=== PATIENT | male | born 2000 | race Caucasian/White ===

== ENCOUNTER 2022-10-24 07:16 | Day surgery (SDC) | payer BC, SELFPAY ==
[2022-10-24] VITALS (10 sets, daily range): BP systolic 90–131; BP diastolic 45–86; PULSE 55–84; RESP 14–16; TEMP 36.6–36.7; O2SAT 96–100; BMI 28.8
[2022-10-24] MEDS: SODIUM CHLORIDE 0.9 % (FLUSH) 10 ML SYRINGE IVF (07:37)
[2022-10-24] MEDS: LACTATED RINGERS 1000 ML 1,000 ML 100 ML IV (07:38)
--- NOTE | 2022-10-24 07:54 | SUR.PREOP ---
TIME?OUT:?7:56 PT/RN/MDA?VERIFICATION?OF?SURGICAL?SITE Right Thumb Ulna ,?PROCEDURE Nerve block,?AND?CONSENT OBTAINED?PRIOR?TO?INVASIVE?PROCEDURE yes.
[2022-10-24] MEDS: fentaNYL 100 MCG/2 ML inj IVP (07:56)
[2022-10-24] MEDS: MIDAZOLAM HCL 1 MG/ML inj IVP (07:57)
--- NOTE | 2022-10-24 08:09 | P.NB_ITS ---
Nerve Block Nerve Block Time Seen by Provider: 08:09 Date Seen: 10/24/22 Type of block requested by surgeon for post-operative analgesia: axillary Side: right Time out performed: Yes Verification of patient name: Yes Verification of date of : Yes Site marking: site marked Name of person performing procedure: Jude Naren Continuous monitoring Was continuous monitoring of O2 sat, B/P, equipment monitor phototypesetting, recorded every 15 minutes?: Yes Procedure Checklist: sterile prep, needles and gloves Ultrasound guided. Images saved: Yes Medications given in 5ml increments after negative aspiration: Ropivicaine %: 0.5 mL: 20 Needle gauge: 22 Decadron (mg): 10 Precedex (mcg): 20 Patient tolerated procedure well: Yes Block Charges Block Charge (with Pro Fee): Axillary Nerve Use of Ultrasound Machine for Block: Yes- US Guidance/pain block
--- NOTE | 2022-10-24 08:13 | SUR.PREOP ---
I have reviewed and concur with all assessments, medication administration, and documentation completed by Yokasta Betancourt, student nurse.?
[2022-10-24] MEDS: CEFAZOLIN 2 GM INJ IVP (08:42)
--- NOTE | 2022-10-24 09:59 | PM.ORPRC ---
Procedure Note Date of procedure: 10/24/22 Procedure: PREOPERATIVE DIAGNOSIS: Right thumb ulnar collateral ligament avulsion fracture POSTOPERATIVE DIAGNOSIS: Right thumb ulnar collateral ligament avulsion fracture NAME OF OPERATION: Right thumb ulnar collateral ligament repair, with internal brace SURGEON: James Shannon MD BEATER WORKER HELPER: Vilma Rodriguez PA-C ANESTHESIA: Axillary block plus monitored anesthesia care ESTIMATED BLOOD LOSS: 0 mL COMPLICATIONS: None SPECIMENS: None DRAINS: None PREOPERATIVE ANTIBIOTICS: Ancef 2 grams INDICATIONS: The patient is a 22-year-old male with a history of right thumb ulnar collateral ligament injury. Given the severity of the injury and the amount of instability, operative intervention was recommended. The risks, benefits and expected outcomes were discussed in detail. These included but were not limited to: Infection, bleeding, injury to blood vessel or nerve, venous thromboembolism. All questions were answered to their satisfaction. Use of an marketing assistant retail division was necessary for patient positioning, soft tissue retraction, wound closure and dressing and splint application. PROCEDURE: An axillary block was placed by anesthesia. The patient was placed supine on the operating room table. IV sedation was administered. The right upper extremity was prepped and draped in the usual sterile fashion. The limb was exsanguinated with the Tai bandage. The pneumatic tourniquet was inflated to 250 mmHg. A longitudinal incision was made over ulnar side of the thumb MP joint. Subcutaneous dissection was taken with tenotomy scissors. Branches of the radial sensory nerve were encountered and were retracted out of the way, protected throughout the case. The extensor aponeurosis was divided longitudinally, exposing the ulnar collateral ligament. It was torn off of the base of the proximal phalanx with a piece of bone. The bed of the fracture was debrided with the Lempert rongeur and curette. A guide pin was placed in the base of the proximal phalanx, just volar to midline, and the 3.0 mm cannulated drill was used. The Arthrex forked SwiveLock anchor was placed in the base of the proximal phalanx with a 2-0 FiberWire and a labral tape x1. Both limbs of the FiberWire were passed through the distal edge of the ulnar collateral ligament. The MP joint was held reduced and these sutures were tied over the top of the ligament resulting in a horizontal mattress suture. This appeared to anatomically reduce bony fragment. A 2nd guide pin was drilled in the metacarpal head, just proximal to the origin of the ulnar collateral ligament. There was over drilled with a 3.0 mm drill. The Arthrex forked SwiveLock anchor was placed with both limbs of the FiberTape, with the thumb MP joint in 30? of flexion. This completes the internal brace. The MP joint is stable to stress at 0 and 30?. The extensor aponeurosis was repaired with interrupted [id number] 4-0 Vicryl sutures. The wound was irrigated with normal saline. It was closed with the 3-0 Vicryl and a 4-0 Monocryl. Glue was used to seal the skin. A dry dressing and short-arm thumb spica splint were applied, the tourniquet was released. Sponge and needle counts were correct x 2. The patient tolerated the procedure well. There were no apparent complications. They were carefully transferred to the hospital bed and taken to the postanesthesia care unit in satisfactory condition. PLAN: The patient will be discharged to home. They will work on ice and elevation of the hand. They will follow up in the office next week for wound check. We will send them to occupational therapy for a hand based thumb spica Orthoplast splint and early active range of motion.
--- NOTE | 2022-10-24 10:01 | CRLHL7_ITS ---
For Patients: As a result of the Cures Act, medical imaging exams and procedure reports are released immediately into your electronic medical record. You may view this report before your referring provider. If you have questions, please contact your health care provider. Indication: POST OP Technique: Three views right thumb IMPRESSION: Cast is present about the right thumb. There is a fracture deformity at the ulnar base of the thumb proximal phalanx with extension to the 1st MCP joint. Dictated by Sher Solano MD @ 10/24/2022 12:51:32 PM (Electronically Signed)
--- NOTE | 2022-10-24 10:29 | W.ANESCHARGE ---
Anesthesia Charges Start Date/Time Anesthesia Start Date: 10/24/22 Anesthesia Start Time: 08:33 Stop Date/Time Anesthesia Stop Date: 10/24/22 Anesthesia Stop Time: 10:18
[2022-10-24] MEDS: OxyCODONE/APAP 5-325 TABLET 1 TAB PO (11:30)
== END 2022-10-24 11:52 | disposition home or self-care (01) ==
PROVIDERS: PCP Family Medicine; Visit Provider Orthopaedic Surgery
PROC: (CPT 26540; principal; 2022-10-24 08:15)
DX: S63.418A Traumatic rupture of collateral ligament of other finger at metacarpophalangeal and interphalangeal joint, initial encounter (principal); S62.511A Displaced fracture of proximal phalanx of right thumb, initial encounter for closed fracture
CPT/HCPCS: 26540; 26735; 01830; 73140; 76942; A4580; A9270; C1713; J0690; J1100; J2250; J2405; J2704; J2795; J3010; J3490; J7120

== ENCOUNTER 2023-02-12 16:30 | Outpatient (RCR) | payer BC, SELFPAY | END 2023-02-13 08:05 | disposition home or self-care (01) | PROVIDERS: PCP Family Medicine; Visit Provider Orthopaedic Surgery | DX: S63.641A Sprain of metacarpophalangeal joint of right thumb, initial encounter (principal); Z98.890 Other specified postprocedural states; Z51.89 Encounter for other specified aftercare | CPT/HCPCS: 97110; 97140; 97165; L3913; X5282 ==

== ENCOUNTER 2023-05-11 20:17 | Outpatient (CLI) | payer BC, SELFPAY ==
--- NOTE | 2023-05-20 08:42 | W.PM.SLEEP ---
Sleep Study Details Details Interpreting Provider: Javon Date of Sleep Study: 05/11/23 Sleep Study Details: STUDY TYPE:? Home unattended ? BMI:? 31.2 ORDERING PROVIDER:? Champ INDICATION:? Daytime hypersomnolence ? SLEEP SUMMARY:? 520.3 minutes monitored RESPIRATORY SUMMARY:? AHI 8.4, supine 12.7, left lateral 4.2, right lateral 6.9 Low oxygen 89 Snoring 1.4% PERIODIC LIMB MOVEMENTS OF SLEEP:? Not recorded during home study CARDIAC:? Range 42-96, mean 55.1 beats per minute IMPRESSION:? This study demonstrates mild obstructive sleep apnea worse in the supine position RECOMMENDATION: Treatment options would include CPAP AutoSet 4-17, dental appliance and/or airway expansion surgery.
== END 2023-05-11 20:18 | disposition home or self-care (01) ==
LOC: SLEEP 20:17
PROVIDERS: PCP Family Medicine; Visit Provider Family Medicine
DX: G47.33 Obstructive sleep apnea (adult) (pediatric) (principal)
CPT/HCPCS: 95806